=== PATIENT | female | born 1935 | race Two or more races ===

== ENCOUNTER 2017-11-17 19:08 | Emergency (ER) | payer OTHER ==
[~2017-11-17] VITALS: Ht 157.5 cm; Wt 44.5 kg
[~2017-11-17 19:08] MED LIST: CAPOTEN12.5 MG
== END 2017-11-17 22:00 | disposition home or self-care (01) ==
LOC: ER 19:08
DX: R07.89 Other chest pain (principal)

== ENCOUNTER 2020-09-05 23:19 | Emergency (ER) | payer OTHER ==
[~2020-09-05] VITALS: Ht 160 cm; Wt 54.4 kg
[~2020-09-05 23:19] MED LIST changes: +ATIVAN0.5 M1 PO; +LEVAQUIN500 MG PO; +NEURONTIN300 MG; +OMEPRAZOLE40 MG PO; +PROBIOTIC1 EAC4 PO; +ZANAFLEX4 MG
[2020-09-05] MEDS ORDERED: COZAAR25 MG (23:30)
[2020-09-05] MEDS ORDERED: NAMENDA5 MG (23:30)
== END 2020-09-06 06:33 | disposition home or self-care (01) ==
LOC: ER 23:19
DX: S00.03XA Contusion of scalp, initial encounter (principal); S50.11XA Contusion of right forearm, initial encounter; S40.011A Contusion of right shoulder, initial encounter; S70.11XA Contusion of right thigh, initial encounter; M54.2 Cervicalgia; R07.89 Other chest pain; W18.09XA Striking against other object with subsequent fall, initial encounter; Y93.89 Activity, other specified; Y92.018 Other place in single-family (private) house as the place of occurrence of the external cause; Y99.8 Other external cause status; Z03.818 Encounter for observation for suspected exposure to other biological agents ruled out

== ENCOUNTER 2020-10-24 13:36 | Emergency (ER) | payer OTHER ==
[~2020-10-24] VITALS: Ht 149.9 cm; Wt 42.6 kg
[~2020-10-24 13:36] MED LIST changes: +COZAAR25 MG; +NAMENDA5 MG
== END 2020-10-24 16:18 | disposition home or self-care (01) ==
LOC: ER 13:36
DX: S01.122A Laceration with foreign body of left eyelid and periocular area, initial encounter (principal); W26.8XXA Contact with other sharp object(s), not elsewhere classified, initial encounter; Y93.89 Activity, other specified; Y92.018 Other place in single-family (private) house as the place of occurrence of the external cause; Y99.8 Other external cause status